=== PATIENT | male | born 1980 | race African-American/Black ===

== ENCOUNTER 2017-01-06 19:34 | Emergency (ER) | payer MEDICARE, MEDICAID ==
--- NOTE | 2017-01-06 19:56 | Emergency Department Record ---
History of Present Illness - General Chief Complaint: Chest Pain Stated Complaint: CHEST PAIN Time Seen by Provider: 01/06/17 19:46 Source: Patient Mode of Arrival: Ambulatory Limitations: No limitations - History of Present Illness Initial Comments: 36 yo male presents to ED with a CC of intermittent chest pain for the past several days. Patient denies history of previous symptoms, denies pain with deep inspiration, but does report pain improves with resting. patient reports a history of DM II and HTN. patient denies fevers, chills, or recent illness. Patient denies calf pain, swelling, or history of DVT. MD Complaint: Chest pain Onset/Timin -: Days(s) Pain Location: Right chest Pain Radiation: None Severity: Mild Severity scale (1-10): 4 Quality: Dull, Tightness Consistency: Constant, Intermittent Improves With: Rest Worsens With: Movement Treatments Prior to Arrival: Other Treatment Prior to Arrival Comment:: mucinex - Related Data Allergies Allergy/AdvReac Type Severity Reaction Status Date / Time aspirin Allergy Unknown PT UNSURE Verified 01/06/17 19:37 OF REACTION Penicillins Allergy Unknown PT UNSURE Verified 01/06/17 19:37 OF REACTION Travel Screening - Travel/Exposure Within Last 30 Days Have you traveled within the last 30 days?: No - Travel/Exposure Within Last Year Have you traveled outside the [place] in the last year?: No - Additonal Travel Details Have you been exposed to anyone with a communicable illness?: No - Travel Symptoms Symptom Screening: None Review of Systems Constitutional: Denies: Chills, Fever, Malaise, Night sweats Eyes: Denies: Eye discharge, Eye pain ENT: Denies: Congestion, Ear pain, Epistaxis Respiratory: Denies: Cough, Dyspnea Cardiovascular: Reports: Chest pain. Denies: Dyspnea on exertion Endocrine: Denies: Fatigue, Heat or cold intolerance Gastrointestinal: Denies: Abdominal pain, Nausea, Vomiting Genitourinary: Denies: Incontinence, Retention Musculoskeletal: Denies: Arthralgia, Back pain, Gout, Joint swelling Skin: Denies: Bruising, Change in color Neurological: Denies: Abnormal gait, Confusion, Headache, Seizure Psychiatric: Denies: Anxiety Hematological/Lymphatic: Denies: Anemia, Blood Clots Past Medical History - SOCIAL HISTORY Smoking Status: Never smoker Alcohol Use: Rare Drug Use: None - RESPIRATORY Hx Respiratory Disorders: Yes Hx Asthma: Yes Hx Sleep Apnea: Yes Hx of CPAP: Yes - CARDIOVASCULAR Hx Cardio Disorders: Yes Hx Hypertension: Yes - NEURO Hx Neuro Disorders: Yes Hx Seizures: Yes (as a child) - GI Hx GI Disorders: Yes Hx Reflux: Yes - Hx Genitourinary Disorders: No - ENDOCRINE Hx Endocrine Disorders: Yes Hx Diabetes: Yes - MUSCULOSKELETAL Hx Musculoskeletal Disorders: Yes Hx Arthritis: Yes (osteo-both knees) - PSYCH Hx Psych Problems: Yes Hx Anxiety: Yes - HEMATOLOGY/ONCOLOGY Hx Hematology/Oncology Disorders: No Family Medical History Any Significant Family History?: No Hx Cancer: Father Hx Diabetes: Brother/Sister Hx HTN: Brother/Sister Physical Exam - General General Appearance: Alert, Oriented x3, Cooperative, Mild distress Limitations: No limitations - Head Head exam: Atraumatic, Normocephalic, Normal inspection Head exam detail: negative: Abrasion, Contusion, Lan's sign, General tenderness, Hematoma, Laceration - Eye Eye exam: Normal appearance. negative: Conjunctival injection, Periorbital swelling, Periorbital tenderness, Scleral icterus - ENT Ear exam: negative: Auricular hematoma, Auricular trauma Nasal Exam: negative: Active bleeding, Discharge, Dried blood, Foreign body Mouth exam: negative: Drooling, Laceration, Muffled voice, Tongue elevation - Neck Neck exam: Normal inspection. negative: Meningismus, Tenderness - Respiratory Respiratory exam: Normal lung sounds bilaterally. negative: Rales, Respiratory distress, Rhonchi, Stridor - Cardiovascular Cardiovascular Exam: Regular rate, Normal rhythm, Normal heart sounds - GI/Abdominal GI/Abdominal exam: Soft. negative: Rebound, Rigid, Tenderness - Rectal Rectal exam: Deferred - exam: Deferred - Extremities Extremities exam: Normal inspection. negative: Calf tenderness, Pedal edema, Tenderness - Back Back exam: Denies: CVA tenderness (R), CVA tenderness (L) - Neurological Neurological exam: Alert, Normal gait, Oriented X3 - Psychiatric Psychiatric exam: Normal affect, Normal mood - Skin Skin exam: Normal color. negative: Abrasion Type of lesion: negative: abrasion Course Vital Signs 01/06/17 19:37 Pulse Rate 77 Respiratory 18 Rate Blood Pressure 140/105 Pulse Ox 97 - Reevaluation(s) Reevaluation #1: 01/06/17 19:55 EKG: NSR 75 Normal axis, normal intervals Nonspecific ST-T wave changes are present Reevaluation #2: 01/06/17 20:35 Labs reviewed, Hgb 12.6, CK 647. Labs are otherwise grossly unremarkable for an acute process. CXR: Nothing acute. Patient is currently pain-free following Nitro x 1. EKG #2: NSR 95 Normal axis, Normal intervals Nonspecific ST-T wave changes, unchanged from 1st EKG. Patient was updated on all results, will initiate transfer to [facility] for further evaluation. Reevaluation #3: 01/06/17 21:04 Case was discussed with Dr. Carcamo, will accept transfer for cardiac evaluation. Medical Decision Making - Lab Data Result diagrams: 01/06/17 19:55 01/06/17 19:55 Disposition Disposition: Transfer Clinical Impression: Chest pain Qualifiers: Chest pain type: unspecified Qualified Code(s): R07.9 - Chest pain, unspecified Disposition: Acute Care Hospital Transfer Transfer To: [facility] Reason For Transfer: Cardia Evaluation Accepting Physician: Carlos Alberto Time Discussed w/Accepting Physician: 21:04 Condition: (2) Stable Forms: Patient Portal Access Time of Disposition: 21:05 Quality - Quality Measures Quality Measures: N/A - Blood Pressure Screening Blood Pressure Classification: Hypertensive Reading Systolic Measurement: 140 Diastolic Measurement: 105 Screening for High Blood Pressure: < First Hypertensive BP, F/U Documented > [ [id number]] First Hypertensive Follow-up Interventions: Referral to alternative/primary care provider.
[2017-01-06 20:08] LABS: BASO % 0.5 % (0-6); GRAN % 65.3 % (47-80); HEMATOCRIT 38.5 % (42.0-52.0); HEMOGLOBIN 12.6 gm/dl (14.0-18.0); LYMPH % 25.2 % (16-45); MEAN CELL VOLUME 81.1 fl (81-97); MEAN CORPUSCULAR HEMOGLOBIN 26.5 pg (27-33); MEAN CORPUSCULAR HGB CONC 32.7 g/dl (32-36); MEAN PLATELET VOLUME 11.1 fl (7.4-10.4); PLATELET COUNT 274 K/uL (130-400); RED BLOOD COUNT 4.75 M/uL (4.40-5.70); WHITE BLOOD COUNT W/O DIFF 8.7 K/uL (4.2-12.2)
[2017-01-06] MEDS ORDERED: NITROGLYCERIN 0.4MG SL TABLET #25 BTL SL PRN (20:12)
[2017-01-06 20:20] LABS: ALB/GLOB RATIO 1.6 (1.1-1.8); ALBUMIN 4.5 gm/dL (3.5-5.0); ALKALINE PHOSPHATASE 67 U/L (38-126); ALT/SGPT 48 U/L (21-72); ANION GAP 10.8 (7-16); AST/SGOT 29 U/L (17-59); BILIRUBIN,TOTAL 0.59 mg/dL (0.2-1.3); BLOOD UREA NITROGEN 12 mg/dL (9-20); CARBON DIOXIDE 24.2 mmol/L (22-30); CREATINE PHOSPHOKINASE 647 U/L (55-170); CREATININE 1.1 mg/dL (0.66-1.25); EST GLOMERULAR FILTRATION RATE > 60 ml/min; GLUCOSE,RANDOM 120 mg/dL (70-110); TOTAL PROTEIN 7.4 gm/dL (6.3-8.2)
[2017-01-06 20:31] LABS: CKMB 3.8 ug/L (0-6)
[2017-01-06 20:32] LABS: TROPONIN I < 0.012 ng/mL (0.00-0.034)
--- NOTE | 2017-01-09 07:14 | RADIOLOGY REPORT ---
DATE: 01/06/2017 at 2009 hours. EXAM: PORTABLE CHEST. HISTORY: RIGHT-SIDED CHEST PAIN. TECHNIQUE: A single portable AP upright view of the chest was performed. COMPARISON: 04/18/2016. FINDINGS: The heart, mediastinum, and pulmonary vasculature are normal. The lungs are clear. There is no pneumothorax or effusion. The visualized osseous structures appear intact. IMPRESSION: NO ACUTE CHEST PATHOLOGY. JOB NUMBER: [id number] MTDD
== END 2017-01-06 21:38 | disposition short-term general hospital (02) ==
LOC: ER 19:34
DX: R07.89 Other chest pain (principal); I10 Essential (primary) hypertension; E11.9 Type 2 diabetes mellitus without complications
CPT/HCPCS: 71010; 80053; 82550; 82553; 84484; 85025; 93005; 93010; 99285